=== PATIENT | female | born 1995 | race Caucasian/White ===

== ENCOUNTER 2016-09-16 08:17 | Emergency (ER) | payer MEDICAID ==
[~2016-09-16] VITALS: Ht 167.6 cm; Wt 168.2 kg
[~2016-09-16 08:17] MED LIST: BCP PO; CEFTIN500 MG PO; CEPHALEXIN500 M1 PO; CLEOCIN HC150 MG/CAP PO; GENTAMICIN EYE D5 ML OU; IBUPROFEN800 MG PO; LORTAB 5/500 501 TAB PO; LORTAB 7.5/5001 TAB PO; METFORMIN500 MG PO; MOTRIN 600600 MG/TAB PO; NO HOME MEDICATIONS; NORCO 325 MG-51 TAB PO; PEN-VEE K500 MG PO; PENICILLIN250 MG PO; PERCOCET 325 MG1 TA2 PO; PRENATAL VITAMI1 TA3 PO; SENOKOT S 50 MG1 TAB PO; SERTRALINE50 MG PO; SYNTHROID0.088 MG PO; TRANDATE 100MG100 MG PO; ULTRAM 50MG TAB50 MG PO; ZANTAC 150MG T150 MG PO; ZOFRAN8 MG PO; ZOLPIDEM5 MG PO
[2016-09-16 08:18] VITALS: BP 143/84; TEMP 98.8
[2016-09-16] MEDS ORDERED: AMOXICILLIN 8751 TAB PO (09:06)
[2016-09-16] MEDS ORDERED: NORCO 325 MG-51 TAB PO (09:07)
[2016-09-16] MEDS ORDERED: PERIDEX (CHLOR480 ML MM (09:07)
[2016-09-16 09:46] VITALS: PULSE 100
== END 2016-09-16 09:46 | disposition home or self-care (01) ==
LOC: COL.ER 08:17
DX: K04.7 Periapical abscess without sinus (principal); K08.89 Other specified disorders of teeth and supporting structures; E11.9 Type 2 diabetes mellitus without complications; I10 Essential (primary) hypertension; F17.210 Nicotine dependence, cigarettes, uncomplicated

== ENCOUNTER 2019-06-01 16:43 | Emergency (ER) | payer SELFPAY ==
[~2019-06-01] VITALS: Ht 167.6 cm; Wt 156.8 kg
[~2019-06-01 16:43] MED LIST changes: +AMOXICILLIN 8751 TAB PO; +PERIDEX (CHLOR480 ML MM
[2019-06-01 16:55] VITALS: TEMP 97.7
[2019-06-01 19:47] LABS: HEMATOCRIT 49.1 % (37.0-47.0); HEMOGLOBIN 16.7 g/dl (12.5-16.0); MEAN CELL VOLUME 89 fl (80.0-100.0); MEAN CORPUSCULAR HEMOGLOBIN 30 pg (27.0-31.0); MEAN CORPUSCULAR HGB CONC 34 g/dl (33.0-37.0); MEAN PLATELET VOLUME 11.2 fl (7.4-10.4); PLATELET COUNT 169 K/mm3 (130-400); RED BLOOD COUNT 5.55 M/mm3 (4.10-5.30); REDCELL DISTRIBUTION WIDTH-CV 12.1 % (11.5-14.5)
[2019-06-01 19:54] LABS: ALBUMIN 4.5 gm/dL (3.5-5.0); BILIRUBIN,TOTAL 0.5 mg/dL (0.0-1.0); CALCIUM 8.5 mg/dL (8.4-10.2); CREATININE, serum 0.58 (0.52-1.25); MAGNESIUM 2.3 mg/dL (1.6-2.3); POTASSIUM 4.1 mmol/L (3.4-5.0); TOTAL PROTEIN 8.1 gm/dL (6.4-8.2)
[2019-06-01 20:51] VITALS: BP 101/72; PULSE 88
[2019-06-01 20:58] LABS: BAND 1 % (0-10); LYMPHOCYTE 25 % (20.0-51.0); NEUTROPHILS 69 % (42.0-75.2); PLATELET ESTIMATE NORMAL (NORMAL)
== END 2019-06-01 20:51 | disposition home or self-care (01) ==
LOC: COL.ER 16:43
PROVIDERS: Emergency Medicine
DX: R00.2 Palpitations (principal); R06.02 Shortness of breath; I10 Essential (primary) hypertension; E11.9 Type 2 diabetes mellitus without complications; E66.9 Obesity, unspecified; F17.210 Nicotine dependence, cigarettes, uncomplicated; Z98.890 Other specified postprocedural states; Z90.89 Acquired absence of other organs